=== PATIENT | male | born 1950 | race Two or more races ===

== ENCOUNTER → 2021-12-14 | Day surgery (SDC) | payer OTHER, MEDICAID ==
[2021-12-09 13:57] LABS: Basophils # (auto) 0 10 ^3/uL (0-0.2); Basophils % (auto) 0.5 % (0.0-2.0); Eosinophils # (auto) 0.1 10 ^3/uL (0-0.8); Eosinophils % (auto) 1.2 % (0.0-7.0); Hemoglobin 13.7 g/dL (13.5-17.5); Lymphocytes % (auto) 16.9 % (10.0-50.0); Mean Corpuscular Hemoglobin 31.5 pg (28.0-32.0); Mean Corpuscular Hgb Conc. 33.4 g/dL (32.0-36.0); Mean Corpuscular Volume 94.2 fL (80.0-100.0); Neutrophils % (auto) 64.4 % (37.0-80.0); Nucleated Red Blood Cells % 0.2 %; Red Blood Cells 4.36 10^6/uL (4.5-5.90); Red Cell Distribution Width 13.7 % (11.8-14.3); White Blood Cell 6.1 10^3/uL (4.4-10.8)
[2021-12-09 14:21] LABS: Urine Bacteria NONE SEEN /hpf (None Seen); Urine WBC 13 /hpf (0 - 3)
[2021-12-09 14:30] LABS: INR 0.95 (0.9-1.15); Partial Thromboplastin Time 28.4 sec (24.6-33.4)
[2021-12-09 14:34] LABS: Albumin 3.8 g/dL (3.4-5.0); Calcium 9.5 mg/dL (8.5-10.1); Potassium 4.3 mmol/L (3.5-5.1)
[2021-12-09 14:35] LABS: Urine Blood Trace /uL (Negative); Urine Specific Gravity 1.015 (1.001-1.035)
[2021-12-09 14:39] LABS: BUN/Creatinine Ratio 23.5; Bilirubin, Total 0.4 mg/dL (0.2-1.0); Total Protein 7.2 g/dL (6.4-8.2)
[~2021-12-14] VITALS: Ht 165.1 cm; Wt 61.2 kg
[~2021-12-14] MED LIST: ACCU-CHEK COMFORT CURVE STRIP VI ONE; ASPI81CH59 PO; ATOR20TA PO; CHOL200031 PO; CIPROFLOXACIN 400MG/200ML 200 ML IV ONE; CYAN1TAB14 PO; DICL1GEL72 EX; DICY10CA PO; DOCU100T15 PO; DexAMETHasone SOD PHOS 10MG/1ML VIAL INJ ONE; HYDROmorphone HCL 2 MG/ML VL/or syr IV PRN; METF-370 PO; METO25TA36 PO; METOCLOPRAMIDE HCL 5MG/ml INJ 2ml VIAL IV PRN; MIDAZOLAM HCL 2MG/2ML 2ml VIAL (1mg/ml) ONE; MORPHINE SULFATE 4 MG/ML SYR/VIAL IV PRN; OMEG1CAP31 PO; ONDANSETRON HCL 4 MG/2 ML VIAL ONE; PROPOFOL 10 MG/ML 20 ML IV ONE; RANO500T2 PO; ROCURONIUM 10MG/ML 10ML VIAL IV ONE; SERT25TA14 PO; SODIUM CHLORIDE LOCK 10 ML ONE; SUCCINYLCHOLINE CHLORIDE 20 MG/ML 10ML VIAL IV ONE; SULF500T8 PO; TAMS1CAP25 PO; fentaNYL CITRATE 100 MCG/2 ML VL ONE
[2021-12-14 11:10] VITALS: BP 137/70
== END | disposition home or self-care (01) ==
LOC: SUR 12-10 09:41
PROVIDERS: ATTEND Urology
DX: N20.0 Calculus of kidney (principal); N32.0 Bladder-neck obstruction; N40.1 Benign prostatic hyperplasia with lower urinary tract symptoms; I10 Essential (primary) hypertension; E78.5 Hyperlipidemia, unspecified; E11.9 Type 2 diabetes mellitus without complications; Z79.899 Other long term (current) drug therapy; Z79.84 Long term (current) use of oral hypoglycemic drugs; Z90.49 Acquired absence of other specified parts of digestive tract; Z95.1 Presence of aortocoronary bypass graft; Z98.890 Other specified postprocedural states; Z20.822 Contact with and (suspected) exposure to COVID-19
CPT/HCPCS: 36415; 50590; 52640; 80053; 81001; 82962; 85025; 85610; 85730; 87086; 88305; 88342; C1769; J0330; J0744; J1100; J2250; J2405; J2704; J3010; J7030; U0003

== ENCOUNTER → 2022-05-14 | Outpatient (CLI) | payer OTHER, MEDICAID ==
[~2022-05-14] MED LIST changes: -ACCU-CHEK COMFORT CURVE STRIP VI ONE; -CIPROFLOXACIN 400MG/200ML 200 ML IV ONE; -DexAMETHasone SOD PHOS 10MG/1ML VIAL INJ ONE; -HYDROmorphone HCL 2 MG/ML VL/or syr IV PRN; -METOCLOPRAMIDE HCL 5MG/ml INJ 2ml VIAL IV PRN; -MIDAZOLAM HCL 2MG/2ML 2ml VIAL (1mg/ml) ONE; -MORPHINE SULFATE 4 MG/ML SYR/VIAL IV PRN; -ONDANSETRON HCL 4 MG/2 ML VIAL ONE; -PROPOFOL 10 MG/ML 20 ML IV ONE; -ROCURONIUM 10MG/ML 10ML VIAL IV ONE; -SODIUM CHLORIDE LOCK 10 ML ONE; -SUCCINYLCHOLINE CHLORIDE 20 MG/ML 10ML VIAL IV ONE; -fentaNYL CITRATE 100 MCG/2 ML VL ONE
== END | disposition home or self-care (01) ==
LOC: LAB 11:12
PROVIDERS: ATTEND Urology
DX: N39.0 Urinary tract infection, site not specified (principal)
CPT/HCPCS: 87086

== ENCOUNTER 2022-09-20 15:38 | Inpatient (IN) | payer OTHER, MEDICAID ==
[~2022-09-20] VITALS: Ht 165.1 cm; Wt 55.3 kg
[~2022-09-20 15:38] MED LIST changes: +OMEG-28 PO; -OMEG1CAP31 PO; -SERT25TA14 PO; +SERT25TA28 PO; +SULF500T57 PO; -SULF500T8 PO
[2022-09-20] MEDS: SODIUM CHLORIDE 0.9% 1,000 ML IV SCH (18:15)
[2022-09-20] MEDS ORDERED: MORPHINE SULFATE INJ 2 MG/ml SYRG IV PRN (18:15)
[2022-09-20] MEDS ORDERED: NITROGLYCERIN 0.4 MG SL TAB SL PRN (18:15)
[2022-09-20 18:30] VITALS: BP 132/55; PULSE 82; RESP 14; TEMP 98.1; O2SAT 100
[2022-09-20 18:59] LABS: Basophils # (auto) 0 10 ^3/uL (0-0.2); Basophils % (auto) 0.7 % (0.0-2.0); Eosinophils # (auto) 0.1 10 ^3/uL (0-0.8); Hematocrit 35.6 % (41.0-53.0); Hemoglobin 11.8 g/dL (13.5-17.5); Lymphocytes # (auto) 0.7 10 ^3/uL (0.4-5.4); Lymphocytes % (auto) 14.2 % (10.0-50.0); Mean Corpuscular Hemoglobin 32.5 pg (28.0-32.0); Mean Corpuscular Volume 98.6 fL (80.0-100.0); Monocytes # (auto) 0.8 10 ^3/uL (0-1.3); Monocytes % (auto) 15.7 % (0.0-12.0); Neutrophils # (auto) 3.2 10 ^3/uL (1.6-8.6); Neutrophils % (auto) 67.4 % (37.0-80.0); Red Blood Cells 3.61 10^6/uL (4.5-5.90); Red Cell Distribution Width 13.5 % (11.8-14.3); White Blood Cell 4.8 10^3/uL (4.4-10.8)
[2022-09-20 19:00] VITALS: RESP 18; O2SAT 100
[2022-09-20 19:19] LABS: Calcium 9.2 mg/dL (8.5-10.1); INR 1.01 (0.9-1.15); Partial Thromboplastin Time 29.1 SEC (24.5-34.5); Potassium 3.8 mmol/L (3.5-5.1); Prothrombin Time 10.6 sec (9.3-11.8)
[2022-09-20 19:25] LABS: Bilirubin, Total 0.6 mg/dL (0.2-1.0); Total Protein 6.9 g/dL (6.4-8.2)
[2022-09-20] MEDS ORDERED: ACET1CAP14 PO (19:33)
[2022-09-20] MEDS ORDERED: FOLI-119 PO (19:33)
[2022-09-20 20:00] VITALS: PULSE 64
[2022-09-20 21:51] LABS: Urine Bacteria NONE SEEN /hpf (None Seen); Urine Blood 3+ /uL (Negative); Urine Clarity HAZY (Clear); Urine Color Yellow (Yellow); Urine Protein, UAD 1+ (Negative); Urine Urobilinogen Normal (Negative); Urine WBC 44 /hpf (0 - 3)
[2022-09-20 22:00] VITALS: BP 136/70; PULSE 83; RESP 14; TEMP 97.9; O2SAT 100
[2022-09-21] VITALS (8 sets, daily range): BP systolic 106–130; BP diastolic 57–74; PULSE 68–118; RESP 14–20; TEMP 97–98.5; O2SAT 96–100
[2022-09-21] MEDS: SODIUM CHLORIDE 0.9% 1,000 ML IV SCH ×2 (04:15→13:47)
[2022-09-21] MEDS ORDERED: ceFAZolin 1GM/50ML 0 ML IV ONE (08:32)
[2022-09-21] MEDS ORDERED: CIPROFLOXACIN 400MG/200ML 200 ML IV ONE (08:33)
[2022-09-21] MEDS ORDERED: MIDAZOLAM HCL 2MG/2ML 2ml VIAL (1mg/ml) ONE (09:50)
[2022-09-21] MEDS ORDERED: fentaNYL CITRATE 100 MCG/2 ML VL ONE ×2 (09:50→11:25)
[2022-09-21] MEDS ORDERED: HYDROmorphone HCL 2 MG/ML VL/or syr IV PRN (10:15)
[2022-09-21] MEDS ORDERED: ONDANSETRON HCL 4 MG/2 ML VIAL IV PRN (10:15)
[2022-09-21] MEDS ORDERED: ONDANSETRON HCL 4 MG/2 ML VIAL ONE (11:25)
[2022-09-21] MEDS ORDERED: PROPOFOL 10 MG/ML 20 ML IV ONE (11:25)
[2022-09-21] MEDS: HYDROmorphone HCL 2 MG/ML VL/or syr IV PRN ×2 (12:43→12:53)
[2022-09-21] MEDS ORDERED: hydrALAZINE HCL 20 MG/ML VL IV ONE (12:45)
[2022-09-21] MEDS: cefTRIAXone 1GM/50ML D5W 50 ML IV SCH (13:45)
[2022-09-21] MEDS ORDERED: KETOROLAC TROMETH 30 MG/ML 1ML VIAL IV ONE (15:00)
[2022-09-21] MEDS ORDERED: DEXTROSE (50%) 50ML SYRG IV PRN (17:15)
[2022-09-21] MEDS: ACCU-CHEK COMFORT CURVE STRIP VI SCH (21:30)
[2022-09-21] MEDS: InsuLIN REG 1unit/0.01ml Soln (100units/ml) SC SCH (21:31)
[2022-09-22] MEDS: SODIUM CHLORIDE 0.9% 1,000 ML IV SCH ×2 (00:15→09:20)
[2022-09-22 05:21] VITALS: BP 115/64; PULSE 92; RESP 18; TEMP 99.4; O2SAT 99
[2022-09-22] MEDS: ACCU-CHEK COMFORT CURVE STRIP VI SCH ×3 (06:14→16:32)
[2022-09-22] MEDS: InsuLIN REG 1unit/0.01ml Soln (100units/ml) SC SCH ×3 (06:14→16:31)
[2022-09-22 07:15] LABS: Hematocrit 35.1 % (41.0-53.0); Hemoglobin 11.5 g/dL (13.5-17.5); Mean Corpuscular Hemoglobin 32.5 pg (28.0-32.0); Mean Corpuscular Hgb Conc. 32.7 g/dL (32.0-36.0); Mean Corpuscular Volume 99.5 fL (80.0-100.0); Red Blood Cells 3.53 10^6/uL (4.5-5.90); Red Cell Distribution Width 13.8 % (11.8-14.3); White Blood Cell 7.9 10^3/uL (4.4-10.8)
[2022-09-22 07:22] LABS: Band Neutrophils % (manual) 0; Basophils % (manual) 0 (0.0-2.0); Blast Cells 0; Eosinophils % (manual) 0 (0-7); Metamyelocytes % 0; Myelocytes % 0; Promyelocytes % 0; Reactive Lymphocytes 0
[2022-09-22 08:00] VITALS: BP 117/64; PULSE 89; PULSE 95; RESP 18; TEMP 98.8; O2SAT 98
[2022-09-22 08:07] LABS: Calcium 8.1 mg/dL (8.5-10.1); Potassium 3.9 mmol/L (3.5-5.1)
[2022-09-22 08:27] LABS: Lymphocytes % (manual) 3 (10.0-50.0); Monocytes % (manual) 17 (0-12); Platelet Estimate Adequate
[2022-09-22 09:00] VITALS: BP 117/64; PULSE 95; RESP 18; TEMP 98.8; O2SAT 98
[2022-09-22] MEDS: cefTRIAXone 1GM/50ML D5W 50 ML IV SCH (09:19)
[2022-09-22] MEDS ORDERED: KETOROLAC TROMETH 30 MG/ML 1ML VIAL IV PRN (11:15)
[2022-09-22] MEDS ORDERED: traMADol HCL 50 MG TAB PO PRN (11:15)
[2022-09-22] MEDS: HYDROcodone-ACET 10/325MG TAB PO PRN ×2 (11:44→16:32)
[2022-09-22] MEDS ORDERED: CEFD300C2 PO (12:57)
[2022-09-22 13:00] VITALS: BP 100/73; PULSE 90; RESP 17; TEMP 97.3; O2SAT 96
[2022-09-22 16:57] VITALS: BP 100/73; PULSE 90; RESP 17; TEMP 97.3; O2SAT 96
[2022-09-22 17:00] VITALS: BP 114/51; PULSE 74; RESP 18; TEMP 97.6; O2SAT 94
== END 2022-09-22 18:45 | disposition home health service (06) | DRG 661 ==
LOC: TELE-WESTW 18:21
PROVIDERS: ADMIT Internal Medicine; ATTEND Internal Medicine
PROC: 0T778DZ Dilation of Left Ureter with Intraluminal Device, Via Natural or Artificial Opening Endoscopic (ICD-10-PCS; 2022-09-21)
PROC: 0TCB8ZZ Extirpation of Matter from Bladder, Via Natural or Artificial Opening Endoscopic (ICD-10-PCS; 2022-09-21)
PROC: 0TC68ZZ Extirpation of Matter from Right Ureter, Via Natural or Artificial Opening Endoscopic (ICD-10-PCS; 2022-09-21)
PROC: 0TC18ZZ Extirpation of Matter from Left Kidney, Via Natural or Artificial Opening Endoscopic (ICD-10-PCS; 2022-09-21)
PROC: 0T9D8ZZ Drainage of Urethra, Via Natural or Artificial Opening Endoscopic (ICD-10-PCS; principal; 2022-09-21 09:50)
DX: N13.6 Pyonephrosis (principal); E11.9 Type 2 diabetes mellitus without complications; I10 Essential (primary) hypertension; N21.0 Calculus in bladder; N40.1 Benign prostatic hyperplasia with lower urinary tract symptoms; R33.8 Other retention of urine; Z90.79 Acquired absence of other genital organ(s)
CPT/HCPCS: 36415; 71045; 74018; 74176; 80048; 80053; 81001; 82962; 83036; 84443; 85007; 85025; 85027; 85610; 85730; 87040; 87086; 93005; G0378; J0690; J0696; J1815; J1885; J2250; J2405; J2704

== ENCOUNTER → 2023-08-23 | Day surgery (SDC) | payer OTHER, MEDICAID ==
[2023-08-19 15:01] LABS: Urine Bacteria None Seen /hpf (None Seen)
[2023-08-19 15:15] LABS: Basophils # (auto) 0 10 ^3/uL (0-0.2); Basophils % (auto) 0.5 % (0.0-2.0); Eosinophils # (auto) 0.1 10 ^3/uL (0-0.8); Eosinophils % (auto) 1.7 % (0.0-7.0); Hematocrit 36.9 % (41.0-53.0); Hemoglobin 12.2 g/dL (13.5-17.5); Lymphocytes % (auto) 18.4 % (10.0-50.0); Mean Corpuscular Hemoglobin 30.1 pg (28.0-32.0); Mean Corpuscular Hgb Conc. 32.9 g/dL (32.0-36.0); Mean Corpuscular Volume 91.5 fL (80.0-100.0); Monocytes # (auto) 0.9 10 ^3/uL (0-1.3); Neutrophils # (auto) 3.4 10 ^3/uL (1.6-8.6); Neutrophils % (auto) 62.4 % (37.0-80.0); Nucleated Red Blood Cells % 0.1 %; Red Blood Cells 4.04 10^6/uL (4.5-5.90); Red Cell Distribution Width 14.5 % (11.8-14.3); White Blood Cell 5.5 10^3/uL (4.4-10.8)
[2023-08-19 15:18] LABS: Urine Blood 3+ /uL (Negative); Urine Clarity Clear (Clear); Urine Color Yellow (Yellow); Urine Hyaline Cast FEW /lpf (0 - 2); Urine Mucus FEW (None Seen); Urine Protein, UAD 1+ (Negative); Urine Specific Gravity 1.023 (1.001-1.035); Urine Urobilinogen Normal (Negative); Urine WBC 12 /hpf (0 - 3); Urine pH 6.5 (5.0-9.0)
[2023-08-19 15:34] LABS: INR 1.07 (0.9-1.15); Partial Thromboplastin Time 28.5 SEC (24.5-34.5); Prothrombin Time 11.3 sec (9.3-11.8)
[2023-08-19 16:16] LABS: Alanine Aminotransferase 24 U/L (7-40); Albumin 4.5 g/dL (3.2-4.8); Alkaline Phosphatase 71 U/L (46-116); Anion Gap 6 (5-15); Aspartate Aminotransferase 15 U/L (13-40); BUN/Creatinine Ratio 15.2 (10.0-20.0); Bilirubin, Total 0.4 mg/dL (0.2-1.0); Blood Urea Nitrogen 16 mg/dL (9-23); Calcium 10.1 mg/dL (8.7-10.4); Carbon Dioxide 29 mmol/L (20-30); Chloride 102 mmol/L (98-107); Glucose 125 mg/dL (74-106); Potassium 3.9 mmol/L (3.5-5.1); Sodium 137 mmol/L (136-145); Total Protein 6.8 g/dL (5.7-8.2)
[~2023-08-23] MED LIST changes: +ACET1CAP14 PO; +CEFD300C2 PO; +CIPROFLOXACIN 400MG/200ML 200 ML IV ONE; -CYAN1TAB14 PO; +DIPH2.5T73 PO; -DOCU100T15 PO; +DexAMETHasone SOD PHOS 10MG/1ML VIAL INJ ONE; +FOLI-119 PO; +HYD1TP PR; +HYDROmorphone HCL 2 MG/ML VL/or syr IV PRN; +IOHEXOL 300 MG/ML 100ML BOTTLE IJ ONE; +LEVO25CA3 PO; +MEPERIDINE HCL (25 MG/ML) 1ML VIAL ONE; +MIDAZOLAM HCL 2MG/2ML 2ml VIAL (1mg/ml) IV PRN; +MIDAZOLAM HCL 2MG/2ML 2ml VIAL (1mg/ml) ONE; +MORPHINE SULFATE 4 MG/ML SYR/VIAL IV PRN; -OMEG-28 PO; +ONDANSETRON HCL 4 MG/2 ML VIAL IV ONE; +OXYB5TAB14 PO; +PROPOFOL 10 MG/ML 20 ML IV ONE; -TAMS1CAP25 PO; +WHEAPOW OR; +ePHEDrine SULFATE 50 MG/ML AMP IV PRN; +fentaNYL CITRATE 100 MCG/2 ML VL ONE
[2023-08-23 11:05] VITALS: TEMP 97.8; O2SAT 100
[2023-08-23 11:45] VITALS: BP 141/70; PULSE 80; RESP 12; O2SAT 99
== END | disposition home or self-care (01) ==
LOC: SUR 08:18
PROVIDERS: ATTEND Urology
DX: N20.0 Calculus of kidney (principal); E11.9 Type 2 diabetes mellitus without complications; E78.5 Hyperlipidemia, unspecified; I10 Essential (primary) hypertension; N40.0 Benign prostatic hyperplasia without lower urinary tract symptoms; E03.9 Hypothyroidism, unspecified; Z79.82 Long term (current) use of aspirin; Z79.899 Other long term (current) drug therapy; Z98.890 Other specified postprocedural states; Z82.49 Family history of ischemic heart disease and other diseases of the circulatory system; Z83.3 Family history of diabetes mellitus; Z80.42 Family history of malignant neoplasm of prostate; Z98.41 Cataract extraction status, right eye; Z98.42 Cataract extraction status, left eye; Z86.73 Personal history of transient ischemic attack (TIA), and cerebral infarction without residual deficits; Z79.890 Hormone replacement therapy
CPT/HCPCS: 36415; 50590; 80053; 81001; 82962; 85025; 85610; 85730; 87086; C1769; J0744; J1100; J2175; J2250; J2704; J3010; J7030; Q9967